=== PATIENT | male | born 1935 | race Caucasian/White ===

== ENCOUNTER 2017-12-23 17:26 | Inpatient (IN) | payer MEDICARE ==
[~2017-12-23] VITALS: Ht 172.7 cm; Wt 73.0 kg
[2017-12-23 20:00] VITALS: BP 146/67; PULSE 65; RESP 18; TEMP 98.1; O2SAT 97
[2017-12-24] MEDS ORDERED: ALUMINUM/MAGNESIUM/SIMETH 30 ML CUP PO PRN (00:45)
[2017-12-24] MEDS ORDERED: ACETAMINOPHEN 325 MG TAB PO PRN (00:45)
[2017-12-24] MEDS ORDERED: MAGNESIUM HYDROXIDE SUSP 30 ML CUP PO PRN (00:45)
[2017-12-24 05:48] VITALS: BP 148/66; PULSE 64; RESP 16; TEMP 97.3; O2SAT 97
[2017-12-24] MEDS: PANTOPRAZOLE SOD 20 MG DELAYED RELEASE TAB PO SCH (08:34)
[2017-12-24] MEDS: LISINOPRIL 10 MG TAB PO SCH ×2 (08:34→20:47)
[2017-12-24] MEDS: CARVEDILOL 12.5 MG TAB PO SCH ×2 (08:34→20:47)
[2017-12-24 08:38] LABS: BILIRUBIN, URINE NEG (NEG); BLOOD, URINE TRACE (NEG); GLUCOSE,URINE NEG (NEG); KETONE, URINE NEG (NEG); MUCUS URINE FEW /lpf (OCC); NITRITE,URINE NEG (NEG); PH, URINE 5.5 (5.0-8.5); SQUAMOUS EPITHELIAL CELL URINE <1 /hpf (0-5); URINE COLOR YELLOW (YELLW/STRAW); URINE LEUKOCYTE ESTERASE NEG (NEG)
--- NOTE | 2017-12-24 09:51 | PD.CONS ---
[facility] By [facility] Physician No Primary Care Physician Diagnoses: History of Present Illness Dr. 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 He is admitted after holding a gun to his head during an argument with his . He feels this is related to a mood disturbance, he does not report any history of dementia and does not feel he has any memory loss. She has a past history of coronary artery disease and had bypass 5. 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 She was having mini strokes related to this until he had a bypass surgery and has since not had any history of stroke. The past history of strokes would introduce possibility of a vascular dementia. No acute neurological changes are reported by the patient. Today, when I talked with him, he is feeling at baseline and acting appropriately. Review of Systems Constitutional: DENIES: Fatigue, Fever, Chills Respiratory: DENIES: Cough, Wheezing, Shortness of breath Cardiovascular: DENIES: Chest pain, Palpitations, Syncope Gastrointestinal: DENIES: Abdominal pain, Black stools, Bloody stools Integumentary: DENIES: Abnormal pigmentation, Nail changes, Pruritus, Rash Hematologic/lymphatic: DENIES: Bruising, Lymphadenopathy Immunologic/allergic: DENIES: Eczema, Urticaria Neurologic: DENIES: Abnormal gait, Headache, Paresthesias Psychiatric: DENIES: Anxiety, Confusion, Depression, Hallucinations Past Family Social History Allergies: Coded Allergies: Penicillins (Unverified Allergy, Intermediate, Rash, 12/23/17) possible, not confirmed. pt was taking sulfa at the same time Sulfa (Sulfonamide Antibiotics) (Verified Allergy, Intermediate, Rash, ) possible, not confirmed. pt was taking penicillin at the same time Past Medical History Coronary artery disease hypertension gastroesophageal reflux disease history of CVA Presbycusis Past Surgical History CABG 5 Temporal artery bypass Appendectomy Tonsillectomy Fracture repair at right lower extremity, childhood Reported Medications Not specified Active Ordered Medications Administered Medications Medications (Trade) Dose Ordered Sig/Erick Route PRN Reason Start Time Stop Time Status Last Admin Dose Admin Carvedilol (Coreg) 12.5 mg BID PO 12/24/17 09:00 12/24/17 08:34 Lisinopril (Prinivil) 10 mg BID PO 12/24/17 09:00 12/24/17 08:34 Pantoprazole Sodium (Protonix) 20 mg DAILY PO 12/24/17 09:00 12/24/17 08:34 Family History Lung cancer in multiple relatives Social History Past history of smoking, patient quit 38 years ago Occasional alcohol use No illicit drug abuse Physical Exam Vital Signs Vital Signs Date Time Temp Pulse Resp B/P (MAP) Pulse Ox O2 Delivery O2 Flow Rate FiO2 12/24/17 05:48 97.3 64 16 148/66 (93) 97 12/23/17 20:00 98.1 65 18 146/67 (93) 97 Physical Exam GENERAL: NAD, A&Ox3 HEAD: Normocephalic. NECK: Supple, trachea midline. No lymphadenopathy. EYES: No scleral icterus. No injection or drainage. CARDIOVASCULAR: Regular rate and rhythm without murmurs, gallops, or rubs. RESPIRATORY: Breath sounds equal bilaterally. No accessory muscle use. GASTROINTESTINAL: Abdomen soft, non-tender, nondistended. MUSCULOSKELETAL: No cyanosis, or edema. SKIN: Warm and dry. NEURO: No focal neurological deficitis. Laboratory Laboratory Tests Test 12/24/17 07:45 Urine Color YELLOW Urine Turbidity CLEAR Urine pH 5.5 Urine Specific [place] 1.015 Urine Protein TRACE Urine Glucose (UA) NEG Urine Ketones NEG Urine Occult Blood TRACE Urine Nitrite NEG Urine Bilirubin NEG Urine Urobilinogen LESS THAN 2.0 Urine Leukocyte Esterase NEG Urine RBC 1 Urine WBC 1 Urine Squamous Epithelial Cells <1 Urine Mucus FEW Microscopic Urinalysis Comment CULT NOT INDICATED Assessment and Plan Problem List: (1) Hypertension ICD Code: I10 - Essential (primary) hypertension Assessment and Plan 82-year-old male admitted secondary to behavioral disturbances Acute stress reaction versus behavioral disturbance Management per psychiatry Hypertension Continue Coreg and lisinopril Follow blood pressures No changes in treatments today Follow blood pressure trends adjust treatments as needed coronary artery disease gastroesophageal reflux disease history of CVA Follow clinically Currently asymptomatic DVT prophylaxis Patient is ambulatory Discharge Planning Patient is medically stable Medically clear for discharge, when psychiatry evaluation and treatments are completed and patient is cleared from a psychiatric stand point. Ryan Munoz MD December 24, 2017 09:51
[2017-12-24 11:33] LABS: BICARBONATE 26.8 MEQ/L (21.0-32.0); CALCIUM 9.3 MG/DL (8.5-10.1); CREATININE 1.67 MG/DL (0.60-1.30)
[2017-12-24 11:34] LABS: CHOLESTEROL 135 MG/DL (120-200); TRIGLYCERIDES 121 MG/DL (42-150)
[2017-12-24 11:35] LABS: CHOLESTEROL/ HDL RATIO 3.67 RATIO; HDL CHOLESTEROL 36.7 MG/DL (40.0-60.0); LDL CHOLESTEROL 74 MG/DL (0-99)
--- NOTE | 2017-12-24 14:38 | PD.PSY.CON ---
Provisional Diagnosis Admission Date December 23, 2017 at 19:56 [place] I. 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 He was consulted to me for second opinion. On psychiatric evaluation the patient is found reading his book, calm, cooperative. Difficult to engage in a conversation because he is very hard of hearing. patient reports that he is here because he made a mistake. He says that he never intended to commit suicide. Says that he was just mad. This moment he denies suicidal enemas ideation, he denies visual and auditory hallucinations. He is fully oriented 3. Review of Systems Constitutional: DENIES: Diaphoretic episodes, Fatigue, Fever, Weight gain, Weight loss, Chills, Dizziness, Change in appetite, Night Sweats Endocrine: DENIES: Heat/cold intolerance, Polydipsia, Polyuria, Polyphagia Eyes: DENIES: Blurred vision, Diplopia, Eye inflammation, Eye pain, Vision loss , Photosensitivity, Double Vision Ears, nose, mouth, throat: DENIES: Tinnitus, Hearing loss, Vertigo, Nasal discharge, Oral lesions, Throat pain, Hoarseness, Ear Pain, Running Nose, Epistaxis, Sinus Pain, Toothache, Odynophagia Respiratory: DENIES: Apneas, Cough, Snoring, Wheezing, Hemoptysis, Sputum production, Shortness of breath Cardiovascular: DENIES: Chest pain, Palpitations, Syncope, Dyspnea on Exertion , PND, Lower Extremity Edema, Orthopnea, Claudication Gastrointestinal: DENIES: Abdominal pain, Black stools, Bloody stools, Constipation, Diarrhea, Nausea, Vomiting, Difficulty Swallowing, Anorexia Genitourinary: DENIES: Sexual dysfunction, Urinary frequency, Urinary incontinence, Urgency, Hematuria, Dysuria, Nocturia, Penile Discharge, Testicular Pain, Testicular Swelling Musculoskeletal: DENIES: Joint pain, Muscle aches, Stiffness, Joint Swelling, Back pain, Neck pain Integumentary: DENIES: Abnormal pigmentation, Nail changes, Pruritus, Rash Hematologic/lymphatic: DENIES: Bruising, Lymphadenopathy Immunologic/allergic: DENIES: Eczema, Urticaria Neurologic: DENIES: Abnormal gait, Headache, Localized weakness, Paresthesias, Seizures, Speech Problems, Tremor, Poor Balance Psychiatric: DENIES: Anxiety, Confusion, Mood changes, Depression, Hallucinations, Agitation, Suicidal Ideation, Homicidal Ideation, Delusions Past Family Social History Coded Allergies: Penicillins (Unverified Allergy, Intermediate, Rash, 12/23/17) possible, not confirmed. pt was taking sulfa at the same time Sulfa (Sulfonamide Antibiotics) (Verified Allergy, Intermediate, Rash, ) possible, not confirmed. pt was taking penicillin at the same time Current Medications Medications (Trade) Dose Ordered Sig/Erick Route Start Time Stop Time Status Last Admin (Coreg) 12.5 mg BID PO 12/24/17 09:00 12/24/17 08:34 (Prinivil) 10 mg BID PO 12/24/17 09:00 12/24/17 08:34 (Protonix) 20 mg DAILY PO 12/24/17 09:00 12/24/17 08:34 (Tylenol) 650 mg Q4H PRN PO 12/24/17 00:45 (Milk Of Magnesia Liq) 30 ml DAILY PRN PO 12/24/17 00:45 (Mag-Al Plus Susp Liq) 30 ml Q6H PRN PO 12/24/17 00:45 Physical Exam Vital Signs Vital Signs Date Time Temp Pulse Resp B/P (MAP) Pulse Ox O2 Delivery O2 Flow Rate FiO2 12/24/17 05:48 97.3 64 16 148/66 (93) 97 I/O 12/24/17 12/24/17 12/25/17 08:00 16:00 00:00 Intake Total 360 ml Balance 360 ml Lab Results Test 12/24/17 07:45 12/24/17 09:52 Urine Color YELLOW Urine Turbidity CLEAR Urine pH 5.5 Urine Specific [place] 1.015 Urine Protein TRACE mg/dL Urine Glucose (UA) NEG mg/dL Urine Ketones NEG mg/dL Urine Occult Blood TRACE Urine Nitrite NEG Urine Bilirubin NEG Urine Urobilinogen LESS THAN 2.0 MG/DL Urine Leukocyte Esterase NEG Urine RBC 1 /hpf Urine WBC 1 /hpf Urine Squamous Epithelial Cells <1 /hpf Urine Mucus FEW /lpf Microscopic Urinalysis Comment CULT NOT INDICATED Blood Urea Nitrogen 23 MG/DL Creatinine 1.67 MG/DL Random Glucose 130 MG/DL Calcium Level 9.3 MG/DL Sodium Level 145 MEQ/L Potassium Level 3.7 MEQ/L Chloride Level 107 MEQ/L Carbon Dioxide Level 26.8 MEQ/L Anion Gap 11 MEQ/L Estimat Glomerular Filtration Rate 39 ML/MIN Triglycerides Level 121 MG/DL Cholesterol Level 135 MG/DL LDL Cholesterol 74 MG/DL HDL Cholesterol 36.7 MG/DL Cholesterol/HDL Ratio 3.67 RATIO Mental Status Examination Appearance: Appropriate Consciousness: Alert Orientation: x4 Motor Activity: Normal gait Speech: Unremarkable Language: Adequate Fund of Knowledge: Adequate Attention and Concentration: Adequate Memory: Unremarkable Mood: Appropriate Affect: Appropriate Thought Process & Associations: Intact Thought Content: Appropriate Hallucination Type: None Delusion Type: None Suicidal Ideation: No Suicidal Plan: No Suicidal Intention: No Homicidal Ideation: No Homicidal Plan: No Homicidal Intention: No Insight: Adequate Judgment: Adequate Assessment & Plan Problem List: (1) Dementia with behavioral disturbance ICD Codes: F03.91 - Unspecified dementia with behavioral disturbance Assessment & Plan: I have seen and examined this patient, reviewed documentation, discussed the case with Dr. Marino, I agree and concur with his assessment and plan. Assessment & Plan Estimated LOS: George Wagner MD December 24, 2017 14:38
[2017-12-24 15:19] LABS: HEMOGLOBIN A1C 5.9 % (4.3-6.0)
--- NOTE | 2017-12-24 16:12 | HHI.HP ---
Provisional Diagnosis Admission Date December 23, 2017 at 19:56 [place] I. Dementia with behavioral disturbances Certification of Person's Competence To Provide Express and Informed Consent I have personally examined Mathew Galeano , a person being served at [facility] on, December 24, 2017 16:00. Express and informed consent means consent voluntarily given in writing, by a competent person, after sufficient explanation and disclosure of the subject matter involved to enable the person to make a knowing and willful decision without any element of force, fraud, deceit, duress, or other form of constraint or coercion. This person is 18 years of age or older, is not now known to be incompetent to consent to treatment with a guardian advocate, and does not have a health care surrogate or proxy currently making medical treatment decisions. I have found this person to be one of the following: [] Competent to provide express and informed consent, as defined above, for voluntary admission to this facility and is competent to provide express and informed consent for treatment. He/she has the consistent capacity to make well reasoned, willful, and knowing decisions concerning his or her medical or mental health treatment. The person fully and consistently understands the purpose of the admission for examination/placement and is fully capable of personally exercising all rights [place]] Incompetent to provide express and informed consent to voluntary admission , and this is incompetent to provide express and informed consent to treatment. The person must be transferred to involuntary status and a petition for a guardian advocate filed with the Circuit Court. [] Refusing to provide express and informed consent to voluntary admission but is competent to provide express and informed consent for treatment. The person must be discharged or transferred to involuntary status. Form shall be completed within 24 hours of a person's arrival at the receiving facility and filed in the clinical record of each person: 1. Admitted on a voluntary basis 2. Permitted to provide express and informed consent to his/her own treatment 3. Allowed to transfer from involuntary to voluntary status 4. Prior to permitting a person to consent to his or her own treatment after having been previously found incompetent to consent to treatment. 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 As per chart patient was transferred from a local hospital and had reported that he had received a letter from a car insurance to give up his driver medic's license was dropped from the insurance plan. Patient had neuropsychological testing to determine his cognitive function and was diagnosed with dementia and was put on Aricept which she has stopped due to intolerance to side effects. Patient was found lying hospital bed noted B, cooperative. Patient states that he has been having suicide ideations "on and off for the past week as he states had been having problems with his and having arguments. Patient states he had been feeling depressed for the past 3-4 days in this context. Patient denies any changes sleep, appetite, but has noted decreased energy and concentration stating he has been primary problem with his recent memory. He reports that his mood has been "fine" and recalls that prior to his admission he had threatened to kill himself, that he had decided that he did not want to kill himself and had put the gun down. Patient does not recall exactly where he had put the gun away. Patient at this time denies any suicide ideation states that he does have anger and suicide ideations in the context of recent argument with but not otherwise. Attempts have been made to call patient's for collateral information along with having patient's be his health care surrogate during this admission. Family psychiatric history: Denies Past psychiatric history: Denies previous psychiatric diagnoses although has now been diagnosed with dementia, one remote psychiatric admission at the age of [age] years old, no previous psychiatric medication trials, no previous suicide attempt or self-injurious behavior. Substance use history alcohol use 1 to times a month usually 1-2 drinks at a time. 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 Collateral contact is patient's Ange Galeano. Review of Systems Except as stated in HPI: all other systems reviewed are Neg Past Psych History Violence risk - others (6 mos) Elevated due to report of patient having pointed his gun at his . Violence risk - self (6 mos) Elevated due to recent suicide ideations and having pointed a gun to his head. Substance Abuse History Drugs/Alcohol past 12 months Alcohol use 1-2 times a month, usually 1 to drinks at a time. Past Family Social History Coded Allergies: Penicillins (Unverified Allergy, Intermediate, Rash, 12/23/17) possible, not confirmed. pt was taking sulfa at the same time Sulfa (Sulfonamide Antibiotics) (Verified Allergy, Intermediate, Rash, ) possible, not confirmed. 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 Collateral contact is patient's Ange Galeano. Patient's Strengths (min. 2) Verbal and communicative Physical Exam Patient not noted to be in acute distress, no gross motor abnormalities, no tremors or EPS, no noted psychomotor retardation or agitation. Vital Signs Vital Signs Date Time Temp Pulse Resp B/P (MAP) Pulse Ox O2 Delivery O2 Flow Rate FiO2 12/24/17 05:48 97.3 64 16 148/66 (93) 97 I/O 12/24/17 12/24/17 12/25/17 08:00 16:00 00:00 Intake Total 600 ml Balance 600 ml Lab Results Labs reviewed. Test 12/24/17 07:45 12/24/17 09:52 Urine Color YELLOW Urine Turbidity CLEAR Urine pH 5.5 Urine Specific [place] 1.015 Urine Protein TRACE mg/dL Urine Glucose (UA) NEG mg/dL Urine Ketones NEG mg/dL Urine Occult Blood TRACE Urine Nitrite NEG Urine Bilirubin NEG Urine Urobilinogen LESS THAN 2.0 MG/DL Urine Leukocyte Esterase NEG Urine RBC 1 /hpf Urine WBC 1 /hpf Urine Squamous Epithelial Cells <1 /hpf Urine Mucus FEW /lpf Microscopic Urinalysis Comment CULT NOT INDICATED Blood Urea Nitrogen 23 MG/DL Creatinine 1.67 MG/DL Random Glucose 130 MG/DL Calcium Level 9.3 MG/DL Sodium Level 145 MEQ/L Potassium Level 3.7 MEQ/L Chloride Level 107 MEQ/L Carbon Dioxide Level 26.8 MEQ/L Anion Gap 11 MEQ/L Estimat Glomerular Filtration Rate 39 ML/MIN Hemoglobin A1c 5.9 % Triglycerides Level 121 MG/DL Cholesterol Level 135 MG/DL LDL Cholesterol 74 MG/DL HDL Cholesterol 36.7 MG/DL Cholesterol/HDL Ratio 3.67 RATIO Mental Status Examination Appearance: Appropriate Consciousness: Alert Orientation: Person, Place Speech: Unremarkable Language: Adequate Fund of Knowledge: Adequate Attention and Concentration: Adequate Memory: Impaired Mood: Appropriate Affect: Appropriate Thought Process & Associations: Intact Thought Content: Appropriate Hallucination Type: None Delusion Type: None Suicidal Ideation: Yes (Denies at this time) Suicidal Plan: No Suicidal Intention: No Homicidal Ideation: No Homicidal Plan: No Homicidal Intention: No Insight: Poor Judgment: Poor Assessment & Plan Problem List: (1) Dementia with behavioral disturbance ICD Codes: F03.91 - Unspecified dementia with behavioral disturbance Assessment & Plan Estimated LOS: 2-3 days. Patient is a 2-year-old man with no formal past psychiatric history who was brought under [place] act due to having held a gun to his that with suicide ideations as well as having pointed the gun at his in the home in the context of recent arguments. Patient has been reporting suicide ideations on and off for the past week during these relationship discord episodes and feeling depressed as well but denying any other depressive symptoms aside from neurocognitive deficits from likely vascular dementia. Petition for involuntary hospitalization started, second opinion requested. We will defer from starting any psychotropic medications but will require consent from patient's as she will be has healthcare surrogate for as needed medications such as diphenhydramine 25-50 mg p.o. at bedtime for insomnia and Lorazepam 0.5 mg every 6 hours as needed anxiety. Promotions Assistant has attempted to contact patient's for medication consent but unsuccessful. We will continue to monitor mood and behavior with likely discharge if patient is observed to have stable mood with no behavioral disturbances. We will request patient's to visit during admission and to assess if patient is appropriate for return back to the home with her for safety. Hospital consult input appreciated. Continue to monitor mood and behavior. Discharge planning in progress. Discharge Planning Patient return back to his residence when psychiatrically stable. Kenroy Marino MD December 24, 2017 16:12
[2017-12-24 18:45] VITALS: BP 145/67; PULSE 62; RESP 17; TEMP 97.6; O2SAT 100
[2017-12-25 06:00] VITALS: BP 137/62; PULSE 62; RESP 18; TEMP 99.1; O2SAT 98
[2017-12-25 08:20] LABS: AUTOMATED NEUTROPHIL # 5.3 TH/MM3 (1.8-7.7); BASOPHIL # 0.1 TH/MM3 (0-0.2); BASOPHIL % 0.7 % (0.0-2.0); EOSINOPHIL # 0.2 TH/MM3 (0-0.4); HEMATOCRIT 43.3 % (39.0-51.0); HEMOGLOBIN 14.5 GM/DL (13.0-17.0); LYMPH % 21.7 % (9.0-44.0); LYMPHOCYTE # 1.7 TH/MM3 (1.0-4.8); MEAN CELL VOLUME 88.1 FL (80.0-100.0); MEAN CORPUSCULAR HEMOGLOBIN 29.5 PG (27.0-34.0); MEAN CORPUSCULAR HGB CONC 33.5 % (32.0-36.0); MEAN PLATELET VOLUME 9.2 FL (7.0-11.0); MONO % 9.5 % (0.0-8.0); MONOCYTE # 0.8 TH/MM3 (0-0.9); NEUT % 66.1 % (16.0-70.0); PLATELET COUNT 185 TH/MM3 (150-450); RED BLOOD COUNT 4.91 MIL/MM3 (4.50-5.90); RED CELL DISTRIBUTION WIDTH 14.1 % (11.6-17.2)
[2017-12-25 08:49] LABS: ALBUMIN 3.7 GM/DL (3.4-5.0); ALT (GPT) 15 U/L (12-78); AST (GOT) 13 U/L (15-37); BICARBONATE 27.6 MEQ/L (21.0-32.0); BLOOD UREA NITROGEN 24 MG/DL (7-18); CHLORIDE 108 MEQ/L (98-107); CREATININE 1.63 MG/DL (0.60-1.30); GLOMERULAR FILTRATION RATE 41 ML/MIN (>89); GLUCOSE,RANDOM 103 MG/DL (74-106); MAGNESIUM 2.3 MG/DL (1.5-2.5); PHOSPHORUS 3.4 MG/DL (2.5-4.9); SODIUM (NA) 143 MEQ/L (136-145)
[2017-12-25 08:52] LABS: ALKALINE PHOSPHATASE 44 U/L (45-117); TOTAL BILIRUBIN ADULT 0.7 MG/DL (0.2-1.0); TOTAL PROTEIN 6.9 GM/DL (6.4-8.2)
[2017-12-25] MEDS: CARVEDILOL 12.5 MG TAB PO SCH ×2 (09:00→21:00)
[2017-12-25] MEDS: LISINOPRIL 10 MG TAB PO SCH ×2 (09:00→21:00)
[2017-12-25] MEDS: PANTOPRAZOLE SOD 20 MG DELAYED RELEASE TAB PO SCH (09:00)
--- NOTE | 2017-12-25 15:42 | HHI.PYPN ---
Subjective Remarks The patient was seen today for psychiatric reevaluation. The case was discussed with nursing staff. EMR reviewed. On psychiatric evaluation I find the patient reading a book. Reports good mood. Medication is kind of limited because the patient is very hard of hearing and his hearing aids does not have batteries. But, the patient is able to deny suicidal enemas ideation, he denies visual and auditory hallucinations, and he is fully oriented. Mental Status Examination Appearance: Appropriate Consciousness: Alert Orientation: x4 Motor Activity: Normal gait Speech: Unremarkable Language: Adequate Fund of Knowledge: Adequate Attention and Concentration: Adequate Memory: Unremarkable Mood: Appropriate Affect: Appropriate Thought Process & Associations: Intact Thought Content: Appropriate Hallucination Type: None Delusion Type: None Suicidal Ideation: No Suicidal Plan: No Suicidal Intention: No Homicidal Ideation: No Homicidal Plan: No Homicidal Intention: No Insight: Adequate Judgment: Adequate Results Labs Test 12/25/17 07:31 White Blood Count 8.0 TH/MM3 Red Blood Count 4.91 MIL/MM3 Hemoglobin 14.5 GM/DL Hematocrit 43.3 % Mean Corpuscular Volume 88.1 FL Mean Corpuscular Hemoglobin 29.5 PG Mean Corpuscular Hemoglobin Concent 33.5 % Red Cell Distribution Width 14.1 % Platelet Count 185 TH/MM3 Mean Platelet Volume 9.2 FL Neutrophils (%) (Auto) 66.1 % Lymphocytes (%) (Auto) 21.7 % Monocytes (%) (Auto) 9.5 % Eosinophils (%) (Auto) 2.0 % Basophils (%) (Auto) 0.7 % Neutrophils # (Auto) 5.3 TH/MM3 Lymphocytes # (Auto) 1.7 TH/MM3 Monocytes # (Auto) 0.8 TH/MM3 Eosinophils # (Auto) 0.2 TH/MM3 Basophils # (Auto) 0.1 TH/MM3 CBC Comment DIFF FINAL Differential Comment Blood Urea Nitrogen 24 MG/DL Creatinine 1.63 MG/DL Random Glucose 103 MG/DL Total Protein 6.9 GM/DL Albumin 3.7 GM/DL Calcium Level 9.0 MG/DL Phosphorus Level 3.4 MG/DL Magnesium Level 2.3 MG/DL Alkaline Phosphatase 44 U/L Aspartate Amino Transf (AST/SGOT) 13 U/L Alanine Aminotransferase (ALT/SGPT) 15 U/L Total Bilirubin 0.7 MG/DL Sodium Level 143 MEQ/L Potassium Level 3.8 MEQ/L Chloride Level 108 MEQ/L Carbon Dioxide Level 27.6 MEQ/L Anion Gap 7 MEQ/L Estimat Glomerular Filtration Rate 41 ML/MIN Vitals/IOs Vital Signs Date Time Temp Pulse Resp B/P (MAP) Pulse Ox O2 Delivery O2 Flow Rate FiO2 12/25/17 06:00 99.1 62 18 137/62 (87) 98 Intake and Output 12/25/17 12/25/17 12/26/17 08:00 16:00 00:00 Intake Total 840 ml Balance 840 ml Assessment & Plan Problem List: (1) Dementia with behavioral disturbance ICD Codes: F03.91 - Unspecified dementia with behavioral disturbance Assessment & Plan: Continue longitudinal observation. Brief supportive psychotherapy provided Assessment & Plan Estimated LOS: days Justification for Cont. Inpt. Patient has an elevated risk of danger to self out upon a structured environment George Cristina MD December 25, 2017 15:42
[2017-12-25 18:35] VITALS: BP 143/65; PULSE 67; RESP 17; TEMP 97.8; O2SAT 99
[2017-12-26 06:17] VITALS: BP 137/65; PULSE 65; RESP 20; TEMP 97.9; O2SAT 98
--- NOTE | 2017-12-26 08:35 | HHI.PYPN ---
Subjective Remarks Patient seen and examined with nurse in weekend coverage. Chart reviewed. Case discussed with nursing staff. No behavioral issues noted. Patient is reportedly declining any sort of psychotropic medications. On my examination today, the patient has no particular complaints. 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 He tells me of the circumstances of his presentation here " I was very upset." He is ambivalent regarding suicidal ideation prior to admission but does not have any SI or HI now. Seems more receptive to psychotropic medications but says that he had a very bad reaction to what sounds like a cognitive enhancer, perhaps a cholinesterase inhibitor. No physical complaints. Review of Systems ROS Limitations: Poor Historian Except as stated in HPI: all other systems reviewed are Neg Mental Status Examination Appearance: Appropriate Consciousness: Alert Orientation: x4 Motor Activity: Other (No motor abnormalities noted) Speech: Unremarkable Language: Adequate Fund of Knowledge: Adequate Attention and Concentration: Adequate Mood: Appropriate Affect: Appropriate Thought Process & Associations: Intact Thought Content: Appropriate Hallucination Type: None Delusion Type: None Suicidal Ideation: No Homicidal Ideation: No Mental Status Exam Remarks Insight and judgment are fair Results Labs Labs reviewed. Stable decreased GFR noted. Vitals/IOs Vital Signs Date Time Temp Pulse Resp B/P (MAP) Pulse Ox O2 Delivery O2 Flow Rate FiO2 12/26/17 06:17 97.9 65 20 137/65 (89) 98 Intake and Output 12/26/17 12/26/17 12/27/17 08:00 16:00 00:00 Intake Total 0 ml Balance 0 ml Assessment & Plan Problem List: (1) Dementia with behavioral disturbance ICD Codes: F03.91 - Unspecified dementia with behavioral disturbance Assessment & Plan Continue current treatment as ordered. Defer initiation of psychotropic if indicated to primary psychiatrist. Justification for Cont. Inpt. Risk for decompensation Discharge Planning Per primary psychiatrist Ravi Barbosa MD December 26, 2017 08:35
[2017-12-26 09:08] LABS: BICARBONATE 24.9 MEQ/L (21.0-32.0); CREATININE 1.62 MG/DL (0.60-1.30)
[2017-12-26] MEDS: LISINOPRIL 10 MG TAB PO SCH ×2 (10:03→21:07)
[2017-12-26] MEDS: CARVEDILOL 12.5 MG TAB PO SCH ×2 (10:13→21:00)
[2017-12-26] MEDS: PANTOPRAZOLE SOD 20 MG DELAYED RELEASE TAB PO SCH (10:13)
[2017-12-26 18:05] VITALS: BP 150/68; PULSE 57; RESP 18; TEMP 98.6; O2SAT 98
[2017-12-27 06:32] VITALS: BP 154/70; PULSE 67; RESP 18; TEMP 97.8; O2SAT 98
[2017-12-27] MEDS: CARVEDILOL 12.5 MG TAB PO SCH (08:13)
[2017-12-27] MEDS: PANTOPRAZOLE SOD 20 MG DELAYED RELEASE TAB PO SCH (08:13)
[2017-12-27] MEDS: LISINOPRIL 10 MG TAB PO SCH (08:13)
[2017-12-27] MEDS ORDERED: PANT20 PO (08:57)
[2017-12-27] MEDS ORDERED: CARV12.5 PO (08:57)
[2017-12-27] MEDS ORDERED: LISI10TA3 PO (08:57)
--- NOTE | 2017-12-27 09:06 | HHI.DS ---
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 He was consulted to me for second opinion. On psychiatric evaluation the patient is found reading his book, calm, cooperative. Difficult to engage in a conversation because he is very hard of hearing. patient reports that he is here because he made a mistake. He says that he never intended to commit suicide. Says that he was just mad. This moment he denies suicidal enemas ideation, he denies visual and auditory hallucinations. He is fully oriented 3. 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 Patient was continued on medication regimen for chronic medical illnesses but was not started on any psychotropic medications as patient did not endorse symptoms that required immediate intervention with recent events likely contextual. Collateral from patients confirmed that she had not safety concerns with patient returning home now that the firearm was removed from the home by police and wants him home. Patient throughout admission was noted to calm and cooperative with staff, with no behavioral disturbances, stable mood, no evidence of depressed mood, manic or psychotic symptoms. Patient had visit daily and was supportive of his care and had no safety concerns with patient returning back home. Upon discharge patient stated feeling good, stated feeling okay with returning back to his home; noted to be calm and cooperative and stated that he would be willing to continue treatment and follow -up. He agreed to continuing medical recommendations, treatment and cooperate for continuity of care. Patient; denies SI, HI, AVH or delusions. Supportive psychotherapy provided. Patient advised to call 911 or go nearest ED in case of emergency. Patient agreed with plan. Results Blood Pressure 154 / 70 Vital Signs Date Time Temp Pulse Resp B/P (MAP) Pulse Ox O2 Delivery O2 Flow Rate FiO2 12/27/17 06:32 97.8 67 18 154/70 (98) 98 Laboratory Tests Test 12/24/17 09:52 12/25/17 07:31 12/26/17 07:43 Blood Urea Nitrogen 23 MG/DL (7-18) 24 MG/DL (7-18) 27 MG/DL (7-18) Creatinine 1.67 MG/DL (0.60-1.30) 1.63 MG/DL (0.60-1.30) 1.62 MG/DL (0.60-1.30) Random Glucose 130 MG/DL (74-106) Estimat Glomerular Filtration Rate 39 ML/MIN (>89) 41 ML/MIN (>89) 41 ML/MIN (>89) HDL Cholesterol 36.7 MG/DL (40.0-60.0) Monocytes (%) (Auto) 9.5 % (0.0-8.0) Alkaline Phosphatase 44 U/L (45-117) Aspartate Amino Transf (AST/SGOT) 13 U/L (15-37) Chloride Level 108 MEQ/L (98-107) 110 MEQ/L (98-107) Laboratory Results Test 12/24/17 09:52 Cholesterol Level 135 MG/DL (120-200) HDL Cholesterol 36.7 MG/DL (40.0-60.0) Hemoglobin A1c 5.9 % (4.3-6.0) LDL Cholesterol 74 MG/DL (0-99) Triglycerides Level 121 MG/DL (42-150) Summary of Procedures none Pending results at discharge: No Medications # of Antipsychotic meds at D/C: 0 Approp Antipsych med options 1 - Minimum of three failed multiple trials of monotherapy. 2 - Documented plan to taper to monotherapy due to previous use of multiple meds OR cross-taper in progress at D/C. 3 - Documentation of augmentation of Clozapine. 4 - Justification other than those listed in allowable values 1-3, document here : Discharge Discharge Date: December 27, 2017 Discharge Diagnosis: (1) Dementia with behavioral disturbance ICD Code: F03.91 - Unspecified dementia with behavioral disturbance Pt Condition on Discharge: Stable Discharge Disposition: Discharge Home Discharge Instructions Diet Instructions: Heart Healthy Diet Activities you can perform: Weight Bearing as Jaspal Discharge Time > 30 minutes Mental Status Examination Appearance: Appropriate Consciousness: Alert Orientation: x4 Motor Activity: Other (No motor abnormalities noted) Speech: Unremarkable Language: Adequate Fund of Knowledge: Adequate Attention and Concentration: Adequate Mood: Appropriate Affect: Appropriate Thought Process & Associations: Intact Thought Content: Appropriate Hallucination Type: None Delusion Type: None Suicidal Ideation: No Suicidal Plan: No Suicidal Intention: No Homicidal Ideation: No Homicidal Plan: No Homicidal Intention: No Insight: Fair (limited) Judgment: Impulsive Discharge/Advance Care Plan Health Problems: (1) Dementia with behavioral disturbance Goals to promote your health * To prevent worsening of your condition and complications * To maintain your health at the optimal level Directions to meet your goals Take your medications as prescribed Follow your dietary instruction Follow activity as directed Keep your appointments as scheduled Take your immunizations and boosters as scheduled If your symptoms worsen call your PCP, if no PCP go to Urgent Care Center or Emergency Room For 22/02 questions related to your inpatient stay or results of tests pending at discharge, please contact Dr. Kenroy Marino at Smoking is Dangerous to Your Health. Avoid second hand smoking Kenroy Marino MD December 27, 2017 09:06
== END 2017-12-27 12:10 | disposition home or self-care (01) | DRG 884 ==
LOC: H4EA 19:56
PROVIDERS: ADMIT Student in an Organized Health Care Education/Training Program; ATTEND Student in an Organized Health Care Education/Training Program
DX: F03.91 Unspecified dementia, unspecified severity, with behavioral disturbance (principal); Z95.1 Presence of aortocoronary bypass graft; I10 Essential (primary) hypertension; I25.10 Atherosclerotic heart disease of native coronary artery without angina pectoris; H91.10 Presbycusis, unspecified ear; K21.9 Gastro-esophageal reflux disease without esophagitis; Z86.73 Personal history of transient ischemic attack (TIA), and cerebral infarction without residual deficits; Z87.891 Personal history of nicotine dependence
CPT/HCPCS: 80048; 80053; 80061; 81001; 83036; 83735; 84100; 85025